=== PATIENT | male | born 2000 | race Caucasian/White ===

== ENCOUNTER 2023-04-03 04:21 | Emergency (ER) | payer OTHER ==
[~2023-04-03] VITALS: Ht 177.8 cm; Wt 83.9 kg
[2023-04-03 04:52] VITALS: BP 150/80
== END 2023-04-03 04:53 | disposition home or self-care (01) ==
LOC: ED 04:21
DX: S00.33XA Contusion of nose, initial encounter (principal); Y04.2XXA Assault by strike against or bumped into by another person, initial encounter
CPT/HCPCS: 99283